=== PATIENT | female | born 1965 | race Two or more races ===

== ENCOUNTER → 2020-03-01 | Outpatient (REF) | payer OTHER ==
[2020-03-01 19:00] LABS: APPEARANCE, URINE CLOUDY (CLEAR); BACTERIA, URINE AUTO NEGATIVE (NEGATIVE); BILIRUBIN, URINE AUTO NEGATIVE (NEGATIVE); BLOOD, URINE BLOOD NEGATIVE (NEGATIVE); CALCIUM OXALATE CRYSTALS LARGE; COLOR, URINE AMBER (YELLOW); GLUCOSE, URINE (UA) AUTO NEGATIVE (NEGATIVE); KETONE, URINE AUTO NEGATIVE (NEGATIVE); LEUKOCYTE ESTERASE, URINE AUTO NEGATIVE (NEGATIVE); MUCUS, URINE SMALL (NEGATIVE); NITRITE, URINE AUTO NEGATIVE (NEGATIVE); PROTEIN, URINE AUTO NEGATIVE (NEGATIVE); RBC, URINE AUTO 11 /HPF (0-3); SPECIFIC GRAVITY URINE AUTO 1.014 (1.002-1.035); SQUAMOUS EPITHELIAL CELL UR AU 0 /HPF (0-6); UROBILINOGEN, URINE AUTO 0.2 mg/dL (0.0-2.0); WBC, URINE AUTO 2 /HPF (0-3)
[2020-03-01 19:19] LABS: ALT/SGPT 31 U/L (12-78); BILIRUBIN,TOTAL 0.6 MG/DL (0.2-1.0); BLOOD UREA NITROGEN 12 MG/DL (7-18); CALCIUM LEVEL 9.8 MG/DL (8.5-10.1); CARBON DIOXIDE LEVEL 31 MEQ/L (21-32); CHLORIDE LEVEL 104 MEQ/L (98-107); CHOLESTEROL LEVEL 249 MG/DL (<200); CHOLESTEROL RISK RATIO 3.151 (<5); CREATININE FOR GFR 1.03 MG/DL (0.55-1.30); GLOMERULAR FILTRATION RATE 59.2 (>51); GLUCOSE, FASTING 85 MG/DL (70-100); HDL CHOLESTEROL 79 MG/DL (>40); LDL CHOLESTEROL 139 MG/DL (<100); NON-HDL-C 170 MG/DL; POTASSIUM SERUM 4.1 MEQ/L (3.5-5.1); SODIUM LEVEL 137 MEQ/L (136-145); TOTAL PROTEIN 8.5 GM/DL (6.4-8.2); TRIGLYCERIDES LEVEL 154 MG/DL (<150)
[2020-03-01 20:56] LABS: CHLAMYDIA DNA AMPLIFICATION NEGATIVE (NEGATIVE); GC DNA AMPLIFICATION NEGATIVE (NEGATIVE)
[2020-03-02 18:51] LABS: HEPATITIS B SURFACE ANTIBODY POSITIVE (POSITIVE)
[2020-03-02 19:00] LABS: HEPATITIS B SURFACE ANTIGEN NEGATIVE (NEGATIVE)
[2020-03-06 15:09] LABS: %CD4 Pos Lymphs 29.2 % (30.8-58.5); ABS Eosinophils 0.2 x10E3/uL (0.0-0.4); ABS Lymphs 2.2 x10E3/uL (0.7-3.1); ABS Monocytes 0.4 x10E3/uL (0.1-0.9); ABS Neutophils 1.6 x10E3/uL (1.4-7.0); Abs CD4 Helper 642 /uL (359-1519); Abs CD8 Suppres 792 /uL (109-897); CD4/CD8 Ratio 0.81 (0.92-3.72); Eosinophils 4 % (Not Estab.); HCT 46.5 % (34.0-46.6); HEPATITIS A IgG TOTAL Positive (Negative); HEPATITIS B CORE ANTIBODY IGG Negative (Negative); HGB 14.6 g/dL (11.1-15.9); HIV-1 RNA PCR QUANT 2 LC550285 <20 copies/mL (.); Immature Grans 0 % (Not Estab.); Lymphocytes 50 % (Not Estab.); MCH 29.1 pg (26.6-33.0); MCHC 31.4 g/dL (31.5-35.7); MCV 93 fL (79-97); Monocytes 9 % (Not Estab.); Neutrophils 36 % (Not Estab.); Platelets 255 x10E3/uL (150-450); RBC 5.02 x10E6/uL (3.77-5.28); RDW 13.2 % (11.7-15.4); WBC 4.4 x10E3/uL (3.4-10.8)
== END ==
LOC: M SFHCPLAZ 13:57
PROVIDERS: ATTEND Internal Medicine Infectious Disease
DX: Z79.899 Other long term (current) drug therapy (principal); Z21 Asymptomatic human immunodeficiency virus [HIV] infection status; I10 Essential (primary) hypertension; E78.00 Pure hypercholesterolemia, unspecified

== ENCOUNTER → 2020-05-22 | Outpatient (REF) | payer OTHER ==
[2020-05-22 15:39] LABS: BASO % 0.5 % (0.0-1.0); EOS # 0.3 10^3/uL (0.0-0.5); EOS % 7.2 % (0.0-3.0); HEMATOCRIT 47.5 % (36.0-47.0); HEMOGLOBIN 14.8 g/dl (12.0-15.5); LYMPH % 47.1 % (24.0-44.0); MEAN CORPUSCULAR HEMOGLOBIN 29.5 pg (27.0-33.0); MEAN CORPUSCULAR HGB CONC 31.2 g/dl (32.0-36.5); MEAN CORPUSCULAR VOLUME 94.6 fl (80.0-96.0); MONO # 0.4 10^3/uL (0.0-0.8); MONO % 9.7 % (0.0-5.0); NEUTROPHILS # 1.5 10^3/uL (1.5-8.5); NEUTROPHILS % 35.3 % (36.0-66.0); PLATELET COUNT, AUTOMATED 228 10^3/uL (150-450); RED BLOOD COUNT 5.02 10^6/uL (4.00-5.40); WHITE BLOOD COUNT 4.3 10^3/uL (4.0-10.0)
[2020-05-22 16:12] LABS: C REACTIVE PROTEIN QUANTITATIV < 0.30 MG/DL (0.00-0.30); RHEUMATOID FACTOR QUANT < 10.0 IU/ML (<15.0)
[2020-05-22 16:13] LABS: FOLATE > 24.0 NG/ML; VITAMIN B12 LEVEL 1004 PG/ML
[2020-05-22 16:30] LABS: ERYTHROCYTE SEDIMENTATION RATE 10 mm/hr (0-30)
[2020-05-24 16:08] LABS: ANTINUCLEAR ANTIBODIES DIRECT Negative (Negative); Lyme Disease IgG/IgM Antibodie <0.91 ISR (0.00-0.90); Lyme Disease IgM Ab Quantitati <0.80 index (0.00-0.79)
== END ==
LOC: M LABDRWAD 15:07
PROVIDERS: ATTEND Internal Medicine Infectious Disease
DX: B20 Human immunodeficiency virus [HIV] disease (principal); M25.50 Pain in unspecified joint

== ENCOUNTER → 2020-08-13 | Outpatient (REF) | payer OTHER ==
[2020-08-13 16:15] LABS: ALBUMIN 4.1 GM/DL (3.2-5.2); BILIRUBIN,TOTAL 0.7 MG/DL (0.2-1.0); CALCIUM LEVEL 9.6 MG/DL (8.5-10.1); CHOLESTEROL RISK RATIO 2.872 (<5); CREATININE FOR GFR 1.14 MG/DL (0.55-1.30); GLOMERULAR FILTRATION RATE 52.7 (>51); POTASSIUM SERUM 3.4 MEQ/L (3.5-5.1); TOTAL PROTEIN 8.8 GM/DL (6.4-8.2)
== END ==
LOC: M SFHCPLAZ 13:17
PROVIDERS: ATTEND Internal Medicine Infectious Disease
DX: B20 Human immunodeficiency virus [HIV] disease (principal); E78.00 Pure hypercholesterolemia, unspecified

== ENCOUNTER 2020-08-25 09:52 | Emergency (ER) | payer OTHER ==
[~2020-08-25] VITALS: Ht 175.3 cm; Wt 79.6 kg
--- NOTE | 2020-08-25 11:59 | REP ---
INDICATION: possible prolapsed uterus; RI OF OVARIES; EVALUATE UTERUS AND OVARIES. COMPARISON: None. TECHNIQUE: Transabdominal and transvaginal scanning performed. FINDINGS: Uterine dimensions are 8.2 x 6.1 x 6.7 cm. Cm. Endometrial echo is 5 mm in AP dimension and centrally placed. Uterus has a bulky appearance with diffuse heterogeneous echotexture and multiple fibroids are identified. Some are calcified. The largest fibroid measures 3.3 x 3.5 x 3.8 cm. The bladder measures 5.9 x 3.7 x 8.8 cm.. The right ovary is not visualized. The left ovary dimensions are 6.0 x 4.8 x 6.7 cm. It's Doppler flow was normal with resistive index of 0.55. An echogenic mass is noted of the left ovary which measures 5.6 x 4.2 by 6.2 cm. Differential diagnosis would include dermoid or hemorrhagic cyst. No free fluid is seen in the cul-de-sac. IMPRESSION: Fibroid uterus as discussed above. Right ovary could not be visualized. Left ovary demonstrates an echogenic mass with a maximum diameter of 6.2 cm which may represent a dermoid or hemorrhagic cyst. No torsion. No free fluid. <Electronically signed by Antonio Coleman > 08/25/20 [id number]
[2020-08-25 12:11] VITALS: BP 148/95
--- NOTE | 2020-08-27 11:40 | ED PDOC ---
Post-Departure Follow-Up dr lemus faxed formal report of pelvic us for fu John Vaca MD Aug 27, 2020 11:40
== END 2020-08-25 12:58 | disposition home or self-care (01) ==
LOC: M ED 09:52
DX: N81.4 Uterovaginal prolapse, unspecified (principal); D25.9 Leiomyoma of uterus, unspecified; I10 Essential (primary) hypertension; E78.5 Hyperlipidemia, unspecified; G43.909 Migraine, unspecified, not intractable, without status migrainosus; M54.30 Sciatica, unspecified side; M51.9 Unspecified thoracic, thoracolumbar and lumbosacral intervertebral disc disorder; B20 Human immunodeficiency virus [HIV] disease; Z86.718 Personal history of other venous thrombosis and embolism; Z88.8 Allergy status to other drugs, medicaments and biological substances

== ENCOUNTER → 2020-08-29 | Outpatient (CLI) | payer OTHER ==
--- NOTE | 2020-08-29 14:50 | REP ---
INDICATION: RT LEG PAIN SWELLING W/ DVT COMPARISON: None. TECHNIQUE: Real time compression and duplex Doppler interrogation of the right lower extremity deep venous system is performed. FINDINGS: The right common femoral, superficial femoral and popliteal veins are fully compressible with transducer pressure and demonstrate normal spontaneous and phasic flow, without evidence of deep venous thrombosis. The patient complains of pain and swelling anteriorly at the level of the mid right tibia. There is no sonographic abnormality at that location. IMPRESSION: No evidence of deep venous thrombosis of the right lower extremity femoral popliteal venous system. <Electronically signed by Antonio Coleman > 08/29/20 [id number]
== END ==
LOC: M RAD 11:52
PROVIDERS: ATTEND Internal Medicine Infectious Disease
DX: I82.5Z1 Chronic embolism and thrombosis of unspecified deep veins of right distal lower extremity (principal)

== ENCOUNTER → 2021-01-31 | Outpatient (REF) | payer OTHER ==
[2021-01-31 15:59] LABS: BILIRUBIN,TOTAL 0.4 MG/DL (0.2-1.0); CHOLESTEROL RISK RATIO 2.629 (<5); CREATININE FOR GFR 1.07 MG/DL (0.55-1.30); GLOMERULAR FILTRATION RATE 56.5 (>51); POTASSIUM SERUM 3.6 MEQ/L (3.5-5.1); TOTAL PROTEIN 8.3 GM/DL (6.4-8.2)
== END ==
LOC: M SFHCPLAZ 12:45
PROVIDERS: ATTEND Internal Medicine Infectious Disease
DX: B20 Human immunodeficiency virus [HIV] disease (principal); E78.00 Pure hypercholesterolemia, unspecified

== ENCOUNTER 2021-05-12 01:32 | Emergency (ER) | payer OTHER ==
[~2021-05-12] VITALS: Ht 175.3 cm; Wt 81.8 kg
[2021-05-12] MEDS ORDERED: LATA0.0015 OU (02:09)
[2021-05-12] MEDS ORDERED: BIKT1TAB PO (02:09)
[2021-05-12] MEDS ORDERED: ZINC220T3 PO (02:09)
[2021-05-12] MEDS ORDERED: AMLO1TAB24 PO (02:09)
[2021-05-12] MEDS ORDERED: TIMO0.5S29 OU (02:09)
[2021-05-12] MEDS ORDERED: TRIA1OI TOP (02:09)
[2021-05-12] MEDS ORDERED: XARE20TA PO (02:09)
[2021-05-12] MEDS ORDERED: RIZA10TA2 PO (02:09)
[2021-05-12] MEDS ORDERED: OXYC1TAB23 PO (02:09)
[2021-05-12] MEDS ORDERED: EZET10TA21 PO (02:09)
[2021-05-12] MEDS ORDERED: ATEN25TA PO (02:09)
[2021-05-12 02:38] LABS: BASO % 0.7 % (0.0-1.0); EOS # 0.4 10^3/uL (0.0-0.5); EOS % 7.7 % (0.0-3.0); HEMATOCRIT 41.4 % (36.0-47.0); HEMOGLOBIN 13.3 g/dl (12.0-15.5); MEAN CORPUSCULAR HEMOGLOBIN 29.4 pg (27.0-33.0); MEAN CORPUSCULAR HGB CONC 32.1 g/dl (32.0-36.5); MEAN CORPUSCULAR VOLUME 91.4 fl (80.0-96.0); MONO # 0.6 10^3/uL (0.0-0.8); MONO % 10.2 % (2.0-8.0); NEUTROPHILS # 1.6 10^3/uL (1.5-8.5); NEUTROPHILS % 28.4 % (36.0-66.0); PLATELET COUNT, AUTOMATED 266 10^3/uL (150-450); RED BLOOD COUNT 4.53 10^6/uL (4.00-5.40); WHITE BLOOD COUNT 5.6 10^3/uL (4.0-10.0)
[2021-05-12 03:04] LABS: BLOOD UREA NITROGEN 19 MG/DL (7-18); CALCIUM LEVEL 9.4 MG/DL (8.5-10.1); CARBON DIOXIDE LEVEL 28 MEQ/L (21-32); CHLORIDE LEVEL 106 MEQ/L (98-107); CK-MB VALUE MASS 1.5 NG/ML (<3.6); CPK CREATINE PHOSPHOKINASE 85 U/L (26-192); CREATININE FOR GFR 1.26 MG/DL (0.55-1.30); GLOMERULAR FILTRATION RATE 46.8 (>51); GLUCOSE, FASTING 159 MG/DL (70-100); MB/CK RELATIVE INDEX 1.76 (< OR =4); SODIUM LEVEL 140 MEQ/L (136-145); TROPONIN I < 0.02 NG/ML (< 0.10)
[2021-05-12] MEDS: NITROGLYCERIN 0.4 MG SUBL TABLET SL PRN ×2 (03:06→03:35)
[2021-05-12] MEDS ORDERED: ISOVUE-370 76% 100ML VIAL As Ordered ONE (03:13)
[2021-05-12 03:30] LABS: ALBUMIN 3.7 GM/DL (3.2-5.2); ALT/SGPT 29 U/L (12-78); BILIRUBIN,DIRECT < 0.1 MG/DL (0.0-0.2); BILIRUBIN,TOTAL 0.3 MG/DL (0.2-1.0); LIPASE 204 U/L (73-393); TOTAL PROTEIN 7.9 GM/DL (6.4-8.2)
[2021-05-12 03:35] VITALS: BP 149/90
--- NOTE | 2021-05-12 04:32 | REPVR ---
PROCEDURE INFORMATION: Exam: CTA Chest With Contrast Exam date and time: 05/12/2021 3:35 AM Age: 55 years old Clinical indication: Other: Chest pain TECHNIQUE: Imaging protocol: Computed tomographic angiography of the chest with contrast. 3D rendering (Not supervised by radiologist): MIP and/or 3D reconstructed images were created by the technologist. Radiation optimization: All CT scans at this facility use at least one of these dose optimization techniques: automated exposure control; mA and/or kV adjustment per patient size (includes targeted exams where dose is matched to clinical indication); or iterative reconstruction. Contrast material: ISOVUE 370; Contrast volume: 75 ml; Contrast route: INTRAVENOUS (IV); COMPARISON: No relevant prior studies available. FINDINGS: Pulmonary arteries: The pulmonary arteries are not enlarged. No filling defects are seen to indicate an acute pulmonary embolism. Aorta: There is no thoracic aortic aneurysm or evidence of dissection. Lungs: Mild volume loss, crowding of bronchovascular structures, and minimal consolidation are seen in the bilateral lung bases, right more than left, most consistent with atelectasis. Pleural spaces: No pleural effusions or pneumothorax identified. Heart: The heart is normal in size. Lymph nodes: No lymphadenopathy is seen. Bones/joints: No suspicious osseous lesions. No acute fractures. Soft tissues: Unremarkable. IMPRESSION: 1. No evidence of acute pulmonary embolism. 2. Somewhat low lung volumes and a small amount of bilateral lung base atelectasis. Electronically signed by: Frances Salgado On 05/12/2021 04:31:52 AM
[2021-05-12 08:34] LABS: CK-MB VALUE MASS 1.3 NG/ML (<3.6); CPK CREATINE PHOSPHOKINASE 77 U/L (26-192); MB/CK RELATIVE INDEX 1.69 (< OR =4); TROPONIN I < 0.02 NG/ML (< 0.10)
[2021-05-12 09:19] VITALS: BP 130/94
--- NOTE | 2021-05-12 19:19 | ECGEPIP ---
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
--- NOTE | 2021-05-12 19:21 | ECGEPIP ---
[facility] - ED Test Date: 2021-05-12 Pat Name: JHOAN SOLANO Department: Room: - Gender: Female Cad Engineer: : 1965 Requested By: JA Ha Order Number: [id number] Reading MD: John Sanchez Measurements Intervals [place] Rate: 68 P: 46 NC: 200 QRS: 46 QRSD: 84 T: 55 QT: 420 QTc: 446 Interpretive Statements Normal sinus rhythm Nonspecific ST T wave changes cw 05/12/[address] T wave changes Electronically Signed on 05-12-2021 19:20:44 EDT by John Sanchez
== END 2021-05-12 09:25 | disposition home or self-care (01) ==
LOC: M ED 01:32
DX: R07.89 Other chest pain (principal); J98.11 Atelectasis; I10 Essential (primary) hypertension; B20 Human immunodeficiency virus [HIV] disease; E78.5 Hyperlipidemia, unspecified; Z86.718 Personal history of other venous thrombosis and embolism; G43.909 Migraine, unspecified, not intractable, without status migrainosus; Z79.899 Other long term (current) drug therapy
CPT/HCPCS: 36415; 71275; 80048; 80076; 82550; 82553; 83690; 85025; 93005; 93041; 94760; 99285; Q9967

== ENCOUNTER → 2021-06-13 | Outpatient (CLI) | payer OTHER ==
[~2021-06-13] MED LIST: AMLO1TAB24 PO; ATEN25TA PO; BIKT1TAB PO; EZET10TA21 PO; ISOVUE-370 76% 100ML VIAL As Ordered ONE; LATA0.0015 OU; OXYC1TAB23 PO; RIZA10TA2 PO; TIMO0.5S29 OU; TRIA1OI TOP; XARE20TA PO; ZINC220T3 PO
--- NOTE | 2021-06-13 09:59 | REP ---
INDICATION: PAIN IN LEG, HX PE, IVC FILTER. Personal history of venous thrombosis and embolism. Pain in the right leg. COMPARISON: None. TECHNIQUE: Helical scanning was acquired and 4 mm axial images are re-formatted. Coronal and sagittal MPR images were generated and reviewed. The contrast enhancement dose is 100 mL of intravenous Isovue 370. A dual phase postcontrast acquisition is performed with portal venous timing and delayed timing to evaluate the vena cava and iliac veins. FINDINGS: Preliminary digital supervisor labor gang radiograph demonstrates an IVC filter and a normal bowel gas pattern. The lung bases are clear on axial CT images. There is no evidence of pleural effusion or upper abdominal ascites. On the initial acquisition there is good arterial luminal opacification and fairly good portal venous opacification. There is no evidence of portal venous or hepatic venous thrombosis. Portal vein opacification is improved on the delayed acquisition. There is venous admixture in the vena cava above the IVC filter on the initial acquisition which is resolved on the delayed. The nose cone of the IVC filter is directed somewhat medially, ext slightly eccentric within the lumen of the IVC. Of interest is a fairly prominent right gonadal vein which enters the IVC just above the nose cone of the IVC filter. The nose cone is just below the level of the left renal vein. The renal veins are unremarkable without thrombosis. There is no evidence of IVC thrombosis. There is slight venous admixture coming from the common femoral veins. There is not felt to be evidence of venous thrombosis. The liver and the spleen are normal in size homogeneous in texture. No abnormality is noted in the pancreas or the gallbladder. Normal adrenal glands are observed bilaterally. There is bilateral renal cortical parenchymal scarring right a little more so than left. No hydronephrosis is seen. Normal caliber aorta. Normal appendix is seen. The uterus is enlarged and multiple fibroids are seen in the uterus. In addition, there is a dermoid cyst affecting the left ovary measuring 5.6 x 5.2 x 6.5 cm in overall dimension. This contains a fat fluid level and some calcification. No right ovarian mass lesion is seen. Urinary bladder is intact. No free fluid is noted. There is scattered diverticulosis of the colon. IMPRESSION: There is an IVC filter in place with its nose cone somewhat eccentric within the lumen of the vena cava tip just below the renal veins. A right gonadal vein enters the IVC above the tip of the IVC filter. There is no evidence of venous thrombosis in the systemic or visceral venous circulation. There is a 6.5 cm ovarian dermoid cyst on the left and fibroid enlarged uterus is present. <Electronically signed by Denton Howard > 06/13/21 [id number]
== END ==
LOC: M RAD 09:08
PROVIDERS: ATTEND Surgery Vascular Surgery
DX: Z86.718 Personal history of other venous thrombosis and embolism (principal); Z95.828 Presence of other vascular implants and grafts; M79.604 Pain in right leg
CPT/HCPCS: 74177; Q9967

== ENCOUNTER → 2021-07-11 | Outpatient (CLI) | payer OTHER ==
[~2021-07-11] MED LIST changes: -ISOVUE-370 76% 100ML VIAL As Ordered ONE
[2021-07-11 16:11] LABS: ALBUMIN 4.2 GM/DL (3.2-5.2); BILIRUBIN,TOTAL 0.5 MG/DL (0.2-1.0); CREATININE FOR GFR 1.22 MG/DL (0.55-1.30); GLOMERULAR FILTRATION RATE 48.5 (>51); POTASSIUM SERUM 4.2 MEQ/L (3.5-5.1); TOTAL PROTEIN 8.5 GM/DL (6.4-8.2)
[2021-07-13 23:09] LABS: % CD8 Pos Lymph 34.3 % (12.0-35.5); %CD4 Pos Lymphs 30.4 % (30.8-58.5); ABS Eosinophils 0.3 x10E3/uL (0.0-0.4); ABS Lymphs 2.5 x10E3/uL (0.7-3.1); ABS Monocytes 0.4 x10E3/uL (0.1-0.9); ABS Neutophils 1.7 x10E3/uL (1.4-7.0); Abs CD4 Helper 760 /uL (359-1519); Abs CD8 Suppres 858 /uL (109-897); CD4/CD8 Ratio 0.89 (0.92-3.72); Eosinophils 5 % (Not Estab.); HCT 41.9 % (34.0-46.6); HGB 13.7 g/dL (11.1-15.9); HIV-1 RNA PCR QUANT 2 LC550285 <20 copies/mL (.); Immature Grans 0 % (Not Estab.); Lymphocytes 52 % (Not Estab.); MCH 29.6 pg (26.6-33.0); MCHC 32.7 g/dL (31.5-35.7); MCV 91 fL (79-97); Monocytes 8 % (Not Estab.); Neutrophils 35 % (Not Estab.); Platelets 285 x10E3/uL (150-450); RBC 4.63 x10E6/uL (3.77-5.28); RDW 12.6 % (11.7-15.4); WBC 4.9 x10E3/uL (3.4-10.8)
== END ==
LOC: M PLALAB 13:35
PROVIDERS: ATTEND Internal Medicine Infectious Disease
DX: B20 Human immunodeficiency virus [HIV] disease (principal)